=== PATIENT | male | born 1975 | race Caucasian/White ===

== ENCOUNTER 2018-08-07 15:30 | Emergency (ER) | payer SELFPAY ==
[~2018-08-07] VITALS: Ht 175.3 cm; Wt 72.6 kg
[2018-08-07] MEDS: IPRATRPIUM/ALBUTEROL 0.5/2.5MG 3 ML NEBU. NEB ONE (15:50)
--- NOTE | 2018-08-07 15:54 | PHYS DOC ---
Past Medical History Past Medical History: Asthma Adult General Chief Complaint Chief Complaint: FLU SYMPTOM HPI HPI Patient is a 43 year old male who presents with flu symptoms and asthma exacerbation. Patient has been ill over the last 1-2 days. He endorses some general myalgias and malaise. He does have a known history of asthma and has been having increased wheezing over the same time. He is not currently have his albuterol inhaler for use at home. He does have fever and chills. He has some nausea, and diarrhea. No chest pain specifically. He does complain of shortness of breath that has been worsening. Patient also has some diffuse abdominal pain over the same time. He has had some nausea and emesis. He complains of nausea on arrival to the ER. Review of Systems Review of Systems Constitutional: + fever, chills Eyes: Denies change in visual acuity HENT: + sore throat and nasal congestion Respiratory: + cough and shortness of breath, wheezing Cardiovascular: No additional information GI: Denies abdominal pain, + nausea and vomiting Musculoskeletal: generalized muscle aches Integument: Denies rash or skin lesions Neurologic: Denies focal neurologic complaints All other systems were reviewed and found to be within normal limits, except as documented in this note. Current Medications Current Medications Current Medications Medications (Trade) Dose Ordered Sig/Heather Start Time Stop Time Status Last Admin Dose Admin Albuterol Sulfate (Ventolin Neb Soln) 2.5 mg 1X ONCE 08/07/18 19:00 08/07/18 19:01 DC 08/07/18 18:57 2.5 MG Albuterol/ Ipratropium (Duoneb) 3 ml 1X ONCE 08/07/18 15:45 08/07/18 15:58 DC 08/07/18 15:50 3 ML Info (CONTRAST GIVEN -- Rx MONITORING) 1 each PRN DAILY PRN 08/07/18 18:30 08/07/18 19:47 DC Iohexol (Omnipaque 300 Mg/ml) 75 ml 1X ONCE 08/07/18 18:30 08/07/18 18:31 DC 08/07/18 18:29 75 ML Methylprednisolone Sodium Succinate (SOLU-Medrol 125MG VIAL) 125 mg 1X ONCE 08/07/18 15:45 08/07/18 15:58 DC 08/07/18 16:11 125 MG Morphine Sulfate (Morphine Sulfate) 4 mg 1X ONCE 08/07/18 15:45 08/07/18 15:58 DC 08/07/18 16:11 4 MG Sodium Chloride 1,000 ml @ 1,000 mls/hr 1X ONCE 08/07/18 15:45 08/07/18 16:44 DC 08/07/18 16:10 1,000 MLS/HR Allergies Allergies Allergies Coded Allergies Type Severity Reaction Last Updated Verified No Known Drug Allergies 08/07/18 No Physical Exam Physical Exam Constitutional: Well developed, well nourished, no acute distress, non-toxic appearance HENT: Normocephalic, atraumatic, bilateral external ears normal, oropharynx moist Eyes: PERRLA, EOMI, conjunctiva normal Neck: Normal range of motion, no tenderness, supple Cardiovascular: mildly tachy, regular rhythm, no murmur Lungs & Thorax: wheezes in all moore with prolonged expiratory phase Skin: Warm, dry, no erythema, no rash Back: No tenderness Extremities: No tenderness Neurologic: Alert and oriented X 3 Psychologic: Affect normal Physical Exam: Quick Constitutional: Well developed, no acute distress, non-toxic appearance Lungs & Thorax: Scattered wheezes, no respiratory distress Skin: Warm, dry, no erythema, no rash Extremities: No tenderness, no edema Current Patient Data Vital Signs Vital Signs Date Time Temp Pulse Resp B/P (MAP) Pulse Ox O2 Delivery O2 Flow Rate FiO2 08/07/18 19:33 70 20 103/78 (86) 94 Room Air 08/07/18 15:31 97.6 97.6 Lab Values Laboratory Tests Test 08/07/18 15:46 White Blood Count 8.5 x10^3/uL (4.0-11.0) Red Blood Count 5.53 x10^6/uL (4.30-5.70) Hemoglobin 17.1 g/dL (13.0-17.5) Hematocrit 48.6 % (39.0-53.0) Mean Corpuscular Volume 88 fL (79-100) Mean Corpuscular Hemoglobin 31 pg (25-35) Mean Corpuscular Hemoglobin Concent 35 g/dL (31-37) Red Cell Distribution Width 13.7 % (11.5-14.5) Platelet Count 283 x10^3/uL (140-400) Neutrophils (%) (Auto) 70 % (31-73) Lymphocytes (%) (Auto) 16 % (24-48) L Monocytes (%) (Auto) 10 % (0-9) H Eosinophils (%) (Auto) 4 % (0-3) H Basophils (%) (Auto) 1 % (0-3) Neutrophils # (Auto) 6.0 x10^3uL (1.8-7.7) Lymphocytes # (Auto) 1.3 x10^3/uL (1.0-4.8) Monocytes # (Auto) 0.9 x10^3/uL (0.0-1.1) Eosinophils # (Auto) 0.3 x10^3/uL (0.0-0.7) Basophils # (Auto) 0.1 x10^3/uL (0.0-0.2) Sodium Level 138 mmol/L (136-145) Potassium Level 3.8 mmol/L (3.5-5.1) Chloride Level 101 mmol/L (98-107) Carbon Dioxide Level 30 mmol/L (21-32) Anion Gap 7 (6-14) Blood Urea Nitrogen 14 mg/dL (8-26) Creatinine 0.9 mg/dL (0.7-1.3) Estimated GFR (Cockcroft-Gault) 93.0 Glucose Level 131 mg/dL (70-99) H Calcium Level 9.2 mg/dL (8.5-10.1) Total Bilirubin 0.3 mg/dL (0.2-1.0) Direct Bilirubin 0.1 mg/dL (0.0-0.2) Aspartate Amino Transferase (AST) 16 U/L (15-37) Alanine Aminotransferase (ALT) 17 U/L (16-63) Alkaline Phosphatase 106 U/L (46-116) Total Protein 7.8 g/dL (6.4-8.2) Albumin 3.1 g/dL (3.4-5.0) L Lipase 73 U/L (73-393) Influenza Type A Antigen Negative (NEGATIVE) Influenza Type B Antigen Negative (NEGATIVE) Laboratory Tests 08/07/18 15:46 Laboratory Tests 08/07/18 15:46 EKG EKG [] Radiology/Procedures Radiology/Procedures PROCEDURE: CT ABD PELV W/ IV CONTRST ONLY Exam performed: CT abdomen and pelvis with contrast HISTORY: Sudden onset upper abdominal pain. DATE OF SERVICE: 08/07/2018. COMPARISON: None available TECHNIQUE: Contiguous helical acquisitions are obtained through the abdomen and pelvis during intravenous administration of 75 cc of Omnipaque 300. Sagittal and coronal reformatted images are obtained and reviewed. FINDINGS: The lung bases are essentially clear. The visualized heart is normal. The liver, gallbladder, spleen and pancreas are normal. Both adrenal glands and bilateral kidneys are normal in size with symmetric excretion of contrast via both kidneys. There is no hydronephrosis or nephrolithiasis. Small and large bowel loops are nondilated and unremarkable. Scattered stool throughout the colon. Appendix is negative. Urinary bladder is distended. There is extensive stool in the rectosigmoid region. No free or focal fluid collections. No pelvic lymphadenopathy. Bones are normal. IMPRESSION: Negative CT Abdomen and pelvis. Extensive scattered stool throughout the colon. Correlate clinically for constipation. PQRS Compliance Statement: One or more of the following individualized dose reduction techniques were utilized for this examination: 1. Automated exposure control 2. Adjustment of the mA and/or kV according to patient size 3. Use of iterative reconstruction technique Electronically signed by: Jaylin Gamboa MD (08/07/2018 6:46 PM) [facility] Course & Med Decision Making Course & Med Decision Making Pertinent Labs and Imaging studies reviewed. (See chart for details) 15:40: Patient is evaluated and examined immediately on arrival to his room. Wheezing. IVF's ordered along with flu screen and pain medications. Duoneb. 16:58: Patient feeling much improved. Continued wheezes, although improved from admission. Additional albuterol tx ordered. IVF's continued. CT scan pending 18:30: ADILSON to Dr. Quick. Please f/u on asthma sx control and CT scan. ABDELRAHMAN: Sign out received from Dr. Núñez regarding patient with HPI and physical exam concerning for bronchitis. Patient receiving Duonebs and steroids. Patient pending CT abd/pelvis results as patient also with report of abdominal pain. Patient seen and evaluated by myself. CT with sign of constipation. Patient reports improvement of symptoms. Patient stable for discharge with outpatient follow-up with PCP. Discussed findings and plan with patient, who acknowledges understanding and agreement. Dragon Disclaimer Dragon Disclaimer This electronic medical record was generated, in whole or in part, using a voice recognition dictation system. Departure Departure Impression: Primary Impression: Bronchitis Additional Impression: Constipation Disposition: 01 HOME, SELF-CARE Condition: STABLE Patient Instructions: Acute Bronchitis, [id number], Constipation, Adult, Easy -to-Read Scripts Albuterol Sulfate (Proair Hfa) 8.5 Gm Hfa.aer.ad 1 PUFF INH PRN Q6HRS PRN for WHEEZING, #1 INHALER Prov: CHIARA QUICK DO 08/07/18 Prednisone (PREDNISONE) 20 Mg Tablet 2 TAB PO DAILY, #8 TAB Start tomorrow 08/08/18 Prov: CHIARA QUICK DO 08/07/18 Problem Qualifiers Additional Impression: Constipation Constipation type: unspecified constipation type Qualified Codes: K59.00 - Constipation, unspecified KEENAN NÚÑEZ DO Aug 07, 2018 15:53 CHIARA QUICK DO Aug 07, 2018 19:24
[2018-08-07 15:57] LABS: BASO # 0.1 x10^3/uL (0.0-0.2); BASO % 1 % (0-3); EOS # 0.3 x10^3/uL (0.0-0.7); EOS % 4 % (0-3); HEMATOCRIT 48.6 % (39.0-53.0); HEMOGLOBIN 17.1 g/dL (13.0-17.5); LYMPH # 1.3 x10^3/uL (1.0-4.8); LYMPH % 16 % (24-48); MEAN CORPUSCULAR HEMOGLOBIN 31 pg (25-35); MEAN CORPUSCULAR HGB CONC 35 g/dL (31-37); MEAN CORPUSCULAR VOLUME 88 fL (79-100); MONO # 0.9 x10^3/uL (0.0-1.1); MONO % 10 % (0-9); NEUT % 70 % (31-73); PLATELET COUNT 283 x10^3/uL (140-400); RED BLOOD COUNT 5.53 x10^6/uL (4.30-5.70); RED CELL DISTRIBUTION WIDTH 13.7 % (11.5-14.5); WHITE BLOOD COUNT 8.5 x10^3/uL (4.0-11.0)
[2018-08-07 16:04] LABS: CALCIUM 9.2 mg/dL (8.5-10.1); CREATININE 0.9 mg/dL (0.7-1.3); POTASSIUM 3.8 mmol/L (3.5-5.1)
[2018-08-07] MEDS: IV NORMAL SALINE 1000ML BAG 1,000 ML IV ONE (16:10)
[2018-08-07] MEDS: MORPHINE SULFATE 4 MG/ML VIAL. IV ONE (16:11)
[2018-08-07] MEDS: methylPREDNISolone SOD SUCC PF 125 MG/2 ML VIAL. IV ONE (16:11)
[2018-08-07 16:15] LABS: INFLUENZA A PATIENT NEGATIVE (NEGATIVE); INFLUENZA B PATIENT NEGATIVE (NEGATIVE)
[2018-08-07] MEDS: ALBUTEROL SULFATE 2.5 MG/3 ML NEBU. NEB ONE ×2 (17:33→18:57)
[2018-08-07] MEDS: IOHEXOL 300 MG/ML 100ML VIAL. IV ONE (18:29)
[2018-08-07] MEDS ORDERED: CONTRAST GIVEN. MC PRN (18:30)
--- NOTE | 2018-08-07 18:51 | RAD ---
Exam performed: CT abdomen and pelvis with contrast HISTORY: Sudden onset upper abdominal pain. DATE OF SERVICE: 08/07/2018. COMPARISON: None available TECHNIQUE: Contiguous helical acquisitions are obtained through the abdomen and pelvis during intravenous administration of 75 cc of Omnipaque 300. Sagittal and coronal reformatted images are obtained and reviewed. FINDINGS: The lung bases are essentially clear. The visualized heart is normal. The liver, gallbladder, spleen and pancreas are normal. Both adrenal glands and bilateral kidneys are normal in size with symmetric excretion of contrast via both kidneys. There is no hydronephrosis or nephrolithiasis. Small and large bowel loops are nondilated and unremarkable. Scattered stool throughout the colon. Appendix is negative. Urinary bladder is distended. There is extensive stool in the rectosigmoid region. No free or focal fluid collections. No pelvic lymphadenopathy. Bones are normal. IMPRESSION: Negative CT Abdomen and pelvis. Extensive scattered stool throughout the colon. Correlate clinically for constipation. PQRS Compliance Statement: One or more of the following individualized dose reduction techniques were utilized for this examination: 1. Automated exposure control 2. Adjustment of the mA and/or kV according to patient size 3. Use of iterative reconstruction technique Electronically signed by: Jaylin Gamboa MD (08/07/2018 6:46 PM) [facility]
[2018-08-07 19:23] LABS: ALBUMIN 3.1 g/dL (3.4-5.0); DIRECT BILIRUBIN 0.1 mg/dL (0.0-0.2); TOTAL BILIRUBIN 0.3 mg/dL (0.2-1.0); TOTAL PROTEIN 7.8 g/dL (6.4-8.2)
[2018-08-07 19:33] VITALS: BP 103/78
[2018-08-07] MEDS ORDERED: ALBU2.5V8 INH (19:33)
[2018-08-07] MEDS ORDERED: PRED20TA PO (19:33)
== END 2018-08-07 19:47 | disposition home or self-care (01) ==
LOC: ER 15:30
DX: J45.901 Unspecified asthma with (acute) exacerbation (principal); K59.00 Constipation, unspecified; R53.81 Other malaise; R10.84 Generalized abdominal pain; R11.2 Nausea with vomiting, unspecified; R19.7 Diarrhea, unspecified; N32.89 Other specified disorders of bladder
CPT/HCPCS: 36415; 74177; 80048; 80076; 83690; 85025; 87070; 87804; 87880; 94640; 96361; 96374; 96375; J2270; J2930; J7030; J7613; J7620; Q9967; 99284-25

== ENCOUNTER 2020-07-17 13:43 | Emergency (ER) | payer SELFPAY ==
[~2020-07-17] VITALS: Ht 175.3 cm; Wt 68.2 kg
[~2020-07-17 13:43] MED LIST: ALBU2.5V8 INH; PRED20TA PO
--- NOTE | 2020-07-17 14:09 | PHYS DOC ---
Past Medical History Past Medical History: Asthma Past Surgical History: Other Additional Past Surgical Histo: PYLORIC STENOSIS Smoking Status: Current Every Day Smoker Alcohol Use: None Drug Use: None General Adult EDM: Chief Complaint: CELLULITIS HPI: HPI: 45-year-old male past medical history significant for asthma, eczema, tobacco dependence and history of pyloric stenosis, presents to the ED with complaints o f sores on his shins for the past few weeks, now with red, painful rash surrounding the sores for the past few days, associated surrounded swelling over his foot. Pt is a poor historian. When asked for MRSA he states "I think I have heard of that." Tetanus is up-to-date. Denies any IVDU. No associated fever. No known history of diabetes but states "can you check this?" Pt states he lives with his sister. Review of Systems: Review of Systems: Constitutional: Denies fever or chills. [] Eyes: Denies change in visual acuity. [] HENT: Denies nasal congestion or sore throat. [] Respiratory: Denies cough or shortness of breath. [] Cardiovascular: Denies chest pain or syncope GI: Denies abdominal pain, nausea, vomiting, bloody stools or diarrhea. [] : Denies dysuria or hematuria Musculoskeletal: Denies back pain or joint pain. [] Integument: Denies crepitus or diaphoresis Neurologic: Denies headache, neck stiffness, focal weakness or sensory changes. [] Endocrine: Denies polyuria or polydipsia. [] Lymphatic: Denies swollen glands. [] Psychiatric: Denies depression or anxiety. [] Heart Score: Risk Factors: Risk Factors: DM, Current or recent (<one month) smoker, HTN, HLP, family history of CAD, obesity. Risk Scores: Score 0 - 3: 2.5% MACE over next 6 weeks - Discharge Home Score 4 - 6: 20.3% MACE over next 6 weeks - Admit for Clinical Observation Score 7 - 10: 72.7% MACE over next 6 weeks - Early Invasive Strategies Allergies: Allergies: Allergies Coded Allergies Type Severity Reaction Last Updated Verified No Known Drug Allergies 08/07/18 No Physical Exam: PE: Constitutional: no acute distress, non-toxic appearance, unkept disheveled appearance, dirt around finger nails, afebrile HENT: Normocephalic, atraumatic, Eyes: EOMI, conjunctiva normal, no discharge. Neck: Normal range of motion, supple, Cardiovascular: S1/2 present, regular rhythm Lungs & Thorax: Speaking in full sentences, bilateral equal chest rise, no tachypnea or increased work of breathing Abdomen: soft, no tenderness, obese abdomen-weight is predominantly in abdomen and legs Skin: Warm, dry, eczema present, No track davalos, multiple small areas of excoriations over UEs -none involving webs spaced of hands Back: No tenderness, no CVA tenderness. [] Extremities: No tenderness, no cyanosis, left pedal edema, equal dp/pt pulses, feet warm with < 1 second cap refill-multiple corns/bunions, 5 scabs over left anterior turner-each scab with surrounding warm erythema-noncircumferential, no crepitus, scant pus under 1-2 scabs, chronic wound left finger Neurologic: Alert and oriented X 3, normal motor function, normal sensory function, no focal deficits noted. [] Psychologic: Affect normal, judgement normal, mood normal. [] EKG: EKG: [] Radiology/Procedures: Radiology/Procedures: IMAGING REPORT Signed PATIENT: ARCADIO CASTANEDA DACCOUNT: [id number] : 1975 LOCATION: ER AGE: 45 SEX: M EXAM STATUS: REG ER ORD. PHYSICIAN: MUNA HORNE DO REASON: leg pain/rash, r/o air vs osteo PROCEDURE: TIBIA FIBULA LEFT Examination: XR LT TIBIA + FIBULA History: Reason: leg pain/rash, r/o air vs osteo / Spl. Instructions: / History: Comparison/Correlation: None Findings: Frontal and lateral views of the left tibia and fibula were obtained. Bony structures are intact with no fracture or destructive finding. Soft tissue swelling about the ankle noted. Moderate-sized calcaneal spur is present. Impression: Soft tissue swelling about the ankle. No soft tissue gas. If osteomyelitis or other infectious processes RA persistent concern, consider further imaging. Electronically signed by: David Demarco MD (07/17/2020 2:30 PM) [id number] DICTATED and SIGNED BY: DAVID DEMARCO MD DATE: 07/17/20 [id number] Course & Med Decision Making: Course & Med Decision Making Pertinent Labs and Imaging studies reviewed. (See chart for details) Concern for multiple sores of patient's left anterior turner with surrounding erythema-mild purulence (1mm) near 2 scabs-cellulitis 2/2 blunt trauma with minimal abscess. Patient appears to have poor lower extremity vasculature, suspect PAD vs PVD. Denies any heart or liver disease (despite appearance). Normal lower extremity pulses. Has left pedal edema but no calve swelling. Will start patient on Keflex and Bactrim and recommend repeat wound check in 2 to 3 days. Will discharge home with strict ED return precautions were given for fever, dehydration, worsening rash, neurologic deficits, severe leg pain or worsening or worsening leg swelling. Encouraged urgent outpatient follow-up with PMD and wound care and vascular surgery. Life-threatening processes were considered but are low suspicion at this time, given history, physical exam and ED workup. Pt was educated on all prescription medications and adverse effects. All patient's questions were answered and pt was stable at time of discharge. Life/limb-threatening differential includes but is not limited to, erythema mul tiforme, gutierrez-ana maria syndrome, toxic epidermal necrolysis, DVT, arterial thrombosis, ischemic extremity, staphylococcal scalded skin syndrome, necrotizing fasciitis/myositis/cellulitis, purpura fulminans, heparin or warfarin induced skin necrosis, angioedema, anaphylaxis drug rash, disseminated intravascular coagulation, disseminated gonococcal disease, vasculitis, septicemia, petechial disorder or coagulopathy. I spoken with the patient and her caregivers. I explained the patient's condition, diagnoses and treatment plan based on the information available to me at this time. I have answered the patient and her caregiver's questions and addressed any concerns. The patient and her caregivers have a good understanding of patient's diagnosis, condition and treatment plan as can be expected at this point. Vital signs have been stable. Patient's condition is stable and appropriate for discharge from the emergency department. Patient will pursue further outpatient evaluation with primary care physician or other designated or consulting physician as outlined in the discharge instructions. The patient and/or caregivers are agreeable to this plan of care and follow-up instructions have been explained in detail. The patient and/or caregivers have received these instructions in written form and have expressed an understanding of the discharge instructions. The patient and/or caregivers are aware that any significant change of condition or worsening of symptoms should prompt immediate return to this or the closest emergency department or call to 1. Delmis Disclaimer: Delmis Disclaimer: This electronic medical record was generated, in whole or in part, using a voice recognition dictation system. Departure Departure Impression: Primary Impression: Cellulitis of left lower leg Disposition: 01 DC HOME SELF CARE/HOMELESS Condition: STABLE Referrals: NO PCP (PCP) FOLLOW UP WITH FAMILY MEDICINE: Family Medicine Address: [address], [address] [place] [id number] Patient Instructions: Cellulitis, Edema, Wound Care, [id number] Additional Instructions: FOLLOW UP WITH WOUND CARE: in 2-3 days for a wound check [facility] Address: [address], [address] [place] [address] FOLLOW UP WITH VASCULAR SURGERY: for PVD/PAD evaluation [facility] Address: [address] [place] [address] EMERGENCY DEPARTMENT GENERAL DISCHARGE INSTRUCTIONS Thank you for coming to [facility] (ED) today and trusting us with you care. We trust that you had a positive experience in our Emergency Department. If you wish to speak to the department management, you may call the Director at [phone]. YOUR FOLLOW UP INSTRUCTIONS ARE FOLLOWS: 1. Do you have a private Doctor? If you do not have a private doctor, please ask for a resource list of physicians or clinics that may be able to assist you with follow up care. 2. The Emergency Physicain has interpreted your x-rays. The X-Ray specialist will also review them. If there is a change in the findings, you will be notified in 48 hours when at all possible. 3. A lab test or culture has been done, your results will be reviewed and you will be notified if you need a change in treatment. ADDITIONAL INSTRUCTIONS AND INFORMATION: 1. Your care today has been supervised by a physician who is specially trained in emergency care. Many problems require more than one evaluation for a complete diagnosis and treatment. We recommend that you schedule your follow up appointment as recommended to ensure complete treatment of you illness or injury. If you are unable to obtain follow up care and continue to have a problem, or if your condition worsens, we recommend that you return to the ED. 2. We are not able to safely determine your condition over the phone nor are we able to give sound medical advice over the phone. For these safety reasons, if you call for medical advice we will ask you to come to the ED for further evaluation. 3. If you have any questions regarding these discharge instructions please call the ED at [phone]. SAFETY INFORMATION: In the interest of safety, wellness, and injury prevention; we encourage you to wear your sealbelt, if you smoke; quite smoking, and we encourage family to use a protective helmet for bicycling and other sporting events that present an increased risk for head injury. IF YOUR SYMPTOMS WORSEN OR NEW SYMPTOMS DEVELOP, OR YOU HAVE CONCERNS ABOUT YOUR CONDITION; OR IF YOUR CONDITION WORSENS WHILE YOU ARE WAITING FOR YOUR FOLLOW UP APPOINTMENT; EITHER CONTACT YOUR PRIMARY CARE DOCTOR, THE PHYSICIAN WHOSE NAME AND NUMBER YOU WERE GIVEN, OR RETURN TO THE ED IMMEDIATELY. Scripts Cephalexin (KEFLEX) 500 Mg Capsule 2 CAP PO Q12HR for 14 Days, #56 CAP Prov: MUNA HORNE DO 07/17/20 Sulfamethoxazole/Trimethoprim (BACTRIM DS TABLET) 1 Each Tablet 1 TAB PO BID for infection for 14 Days, #28 TAB Prov: MUNA HORNE DO 07/17/20 MUNA HORNE DO Jul 17, 2020 14:09
--- NOTE | 2020-07-17 14:32 | RAD ---
Examination: XR LT TIBIA + FIBULA History: Reason: leg pain/rash, r/o air vs osteo / Spl. Instructions: / History: Comparison/Correlation: None Findings: Frontal and lateral views of the left tibia and fibula were obtained. Bony structures are i ntact with no fracture or destructive finding. Soft tissue swelling about the ankle noted. Moderate-s ized calcaneal spur is present. Impression: Soft tissue swelling about the ankle. No soft tissue gas. If osteomyelitis or other infectious proces ses RA persistent concern, consider further imaging. Electronically signed by: David Jaeger MD (07/17/2020 2:30 PM) [id number]
[2020-07-17] MEDS ORDERED: SULF1TAB24 PO (14:49)
[2020-07-17] MEDS ORDERED: CEPH-264 PO (14:50)
[2020-07-17] MEDS ORDERED: SMZ/TMP 800/160MG TABLET. PO ONE (16:15)
[2020-07-17] MEDS ORDERED: CEPHALEXIN 250 MG CAPSULE. PO SCH (16:15)
[2020-07-17] MEDS ORDERED: KETOROLAC 60 MG/2 ML VIAL. IM ONE (16:15)
[2020-07-17 16:45] VITALS: BP 126/80
== END 2020-07-17 16:45 | disposition home or self-care (01) ==
LOC: ER 13:43
DX: L03.116 Cellulitis of left lower limb (principal); J45.909 Unspecified asthma, uncomplicated; F17.200 Nicotine dependence, unspecified, uncomplicated
CPT/HCPCS: 73590; 82962; 96372; 99284; J1885